=== PATIENT | female | born 1990 | race Caucasian/White ===

== ENCOUNTER 2018-12-08 11:32 | Emergency (ER) | payer OTHER ==
[~2018-12-08] VITALS: Ht 154.9 cm; Wt 97.5 kg
== END 2018-12-08 15:29 | disposition home or self-care (01) ==
LOC: ER 11:32
DX: K29.70 Gastritis, unspecified, without bleeding (principal)

== ENCOUNTER 2018-12-15 07:12 | Outpatient (CLI) | payer OTHER | END 2018-12-15 07:14 | disposition home or self-care (01) | LOC: RAD 07:12 | DX: K80.00 Calculus of gallbladder with acute cholecystitis without obstruction (principal) ==

== ENCOUNTER 2018-12-15 07:36 | Outpatient (CLI) | payer OTHER | END 2018-12-15 07:39 | disposition home or self-care (01) | LOC: EKG 07:36 | DX: I10 Essential (primary) hypertension (principal) ==

== ENCOUNTER 2018-12-20 07:00 | Day surgery (SDC) | payer OTHER | END 2018-12-20 13:25 | disposition home or self-care (01) | LOC: CIR.AMB 07:00 → EDSTATUS 12:30 → CIR.AMB 12:30 → SURH 12:30 → CIR.AMB 13:25 | DX: K80.10 Calculus of gallbladder with chronic cholecystitis without obstruction (principal) ==